=== PATIENT | male | born 1985 | race Caucasian/White ===

== ENCOUNTER 2021-04-30 15:38 | Outpatient (CLI) | payer MEDICARE, MEDICAID, SELFPAY ==
--- NOTE | 2021-05-04 10:22 | P.PCNHOL_ITS ---
Holter/Event Monitor Holter/Event Monitor Date of procedure: 05/04/21 Holter/Event Procedure: 48 Hr Holter Monitor Indications: Irregular heart beat Conclusion: 1. 48 hour holter monitor on 04/30/21. 2. Predominant rhythm is sinus rhythm. HR range 67-113 bpm; average HR 73 bpm. 3. There are 3,087 premature supraventricular complexes and 1,375 supraventricular couplets. There are 4 episodes of atrial tachycardia, fastest at 145 bpm and longest lasting 4 beats. 4. There are 1,174 premature ventricular complexes, 292 ventricular couplets and 2 ventricular triplets, and 17 ventricular trigeminy. No ventricular tach ycardia. 5. No sinoatrial or atrioventricular blocks. No significant pauses greater than 2 seconds. 6. No symptoms available for correlation.
== END 2021-04-30 15:39 | disposition home or self-care (01) ==
LOC: CHSCARD 15:44
PROVIDERS: PCP Family Medicine; Visit Provider Physician Assistant
DX: I49.9 Cardiac arrhythmia, unspecified (principal)
CPT/HCPCS: 93225; 93226

== ENCOUNTER 2021-07-22 07:37 | Emergency (ER) | payer MEDICARE, MEDICAID, SELFPAY ==
--- NOTE | ~2021-07-22 | CT_ITS ---
EXAMINATION: CT brain wo con DATE: 07/22/2021 10:49 INDICATION: Altered mental status TECHNIQUE: Computed tomography (CT) of the head was performed without intravenous contrast. Sagittal and coronal reconstructions were performed. The mA was adjusted according to patient size. Iterative reconstruction technique was employed. The dose-length product was 1210.66 mGy-cm. COMPARISON: None FINDINGS: No acute intracranial hemorrhage or abnormal extra axial fluid collection. There is small amount of g as seen along the margins of several of the gyri near the vertex primarily along the right frontopari etal region with smaller amount on some of the gyri of the more posterior right parietal lobe. No gas is seen in the subarachnoid spaces remote from the gyri. In addition there appears be a small amount of gas at the cavernous sinus as well as in the extrathecal soft tissues at the craniocervical junct ion. This constellation of findings suggests that the gas is intravascular. There is mild loss of gra y-white matter differentiation also in the right frontoparietal region which could be artifact of vol ume averaging related to the adjacent gas versus cytotoxic edema related to early infarct. Ventricles are normal and symmetric. No mass/mass effect. The orbits, paranasal sinuses and mastoid air cells a re normal. IMPRESSION: 1. Likely intravascular gas the extrathecal tissues at the craniocervical junction and at the left ca vernous sinus, bladder suggesting venous. Additional gas along multiple gyri of the right frontoparie josh region and in the more posterior right parietal lobe also likely intravascular but unclear whethe r venous or arterial. 2. Region of subtle decreased hand-white matter differentiation in the right frontoparietal region wh ich could be artifact of volume averaging from the adjacent gas versus early infarct. Could consider MRI for further evaluation. 3. Dr. Abdalla discussed these findings with Dr. Sloan at 11:10 AM. Reviewed, dictated and finalized at location A. IMPRESSION: 1. Likely intravascular gas the extrathecal tissues at the craniocervical junct ion and at the left cavernous sinus, bladder suggesting venous. Additional gas along multiple gyri of the right frontoparietal region and in the more posterio r right parietal lobe also likely intravascular but unclear whether venous or a rterial. 2. Region of subtle decreased hand-white matter differentiation in the right fr ontoparietal region which could be artifact of volume averaging from the adjace nt gas versus early infarct. Could consider MRI for further evaluation. 3. Dr. Abdalla discussed these findings with Dr. Sloan at 11:10 AM.
--- NOTE | ~2021-07-22 | XR_ITS ---
EXAMINATION: XR chest 1V portable INDICATION: Hypoxia and tachycardia TECHNIQUE: Portable AP chest at 0849 hours COMPARISON: 09/29/2018 FINDINGS: The lungs are free of acute opacities. There is no pleural effusion or pneumothorax. Chroni c postsurgical changes of Fontan procedure are noted. There has been interval insertion of an endolum inal stent into the IVC/pulmonary artery conduit. IMPRESSION: 1. No acute cardiopulmonary abnormality. Reviewed, dictated and finalized at location B.
[2021-07-22 07:57] VITALS: BP 118/75; PULSE 70; RESP 16; TEMP 36.7; O2SAT 96
--- NOTE | 2021-07-22 08:02 | ED.GENADULT ---
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 He presents to the ER -- an episode of palpitation this morning with rapid heart rate -- hypoxia with low oxygen saturation confirmed by his pulse ox meter. Patient has chronically low oxygen saturations around 80-90%. He had cyanosis of his fingertips. -- Extensive bruising over the anterior abdominal wall around the umbilicus where he had a surgery. -- anxiety attack secondary to his palpitation and hypoxia No chest pain or shortness of breath. No fever. Onset (ago): hour(s) ( Transient episode 2 hours ago with self resolution) Radiation: non-radiation Relieving factors: none Exacerbating factors: none Associated symptoms: denies other symptoms Related Data Home Medications Medication Instructions Recorded Confirmed aspirin 81 mg PO DAILY 07/22/21 07/22/21 furosemide [Lasix] 20 mg PO DAILY 07/22/21 07/22/21 lisinopril 10 mg PO DAILY 07/22/21 07/22/21 lorazepam [Ativan] 0.5 mg PO BID PRN 07/22/21 07/22/21 metoprolol tartrate 25 mg PO DAILY 07/22/21 07/22/21 omeprazole 40 mg PO DAILY 07/22/21 07/22/21 Allergies Allergy/AdvReac Type Severity Reaction Status Date / Time No Known Allergies Allergy Verified 07/22/21 08:05 Review of Systems Review of Systems: All systems reviewed & are unremarkable except as noted in HPI and below Constitutional: Constitutional: Reports as per HPI and Reports no additional constitutional complaints Eyes: Eyes: Reports as per HPI and Reports no additional eye complaints ENT: Reports system reviewed and no additional complaints, except as documented and Reports as per HPI Cardiovascular: Cardiovascular: Reports as per HPI and Reports no additional cardiovascular complaints Respiratory: Respiratory: Reports as per HPI and Reports no additional respiratory complaints Gastrointestinal: Gastrointestinal: Reports as per HPI, Reports no additional gastrointestinal complaints and Reports other ( Abdominal distension. Bruising anterior abdominal wall) Genitourinary: Genitourinary: Reports no additional male genitourinary complaints Musculoskeletal: Musculoskeletal: Reports no additional musculoskeletal complaints and Reports as per HPI Integumentary/Breasts: Skin/Breast: Reports system reviewed and no additional complaints, except as docu and Reports as per HPI Neurologic: Reports system reviewed and no additional complaints, except as documented and Reports as per HPI Psychiatric: Psychiatric: Reports no additional psychiatric complaints Endocrine: Endocrine: Reports no additional endocrine complaints Hematologic/Lymphatic: Hematologic/Lymphatic: Reports no additional hematologic/lymphatic complaints Allergic/Immunologic: Allergic/Immunologic: Reports no additional allergic/immunologic complaints [facility] Past Medical History Medical History (Updated 07/22/21 @ 11:42 by Clemente Sloan MD) Cardiac cirrhosis Double outlet right ventricle History of tricuspid valve disease Mitral valve atresia, congenital Paroxysmal atrial flutter Sick sinus syndrome Surgical History Surgical History (Updated 07/22/21 @ 08:29 by Clemente Sloan MD) H/O vein stripping S/P Fontan procedure Status post biventricular pacemaker Status post umbilical hernia repair, follow-up exam Exam Const: General: cooperative and ill appearing Nutritional Appearance: average body habitus HENMT: Head: normal to inspection and No palpable skull fracture present Ears: hearing grossly normal bilatera
--- NOTE | 2021-07-22 08:33 | ECG_ITS ---
Measurements Intervals [place] Rate: 69 P: 34 IN: 164 QRS: 150 QRSD: 118 T: 113 QT: 405 QTc: 436 Interpretive Statements ELECTRONIC ATRIAL PACEMAKER RIGHT AXIS DEVIATION [QRS AXIS > 100] T-WAVE ABNORMALITY, CONSISTENT WITH ANTEROSEPTAL ISCHEMIA MODERATE T-WAVE ABNORMALITY, CONSIDER LATERAL ISCHEMIA [-0.1+ mV T-WAVE IN I/aVL/V5/V6] LEFT VENTRICULAR HYPERTROPHY ABNORMAL ECG NO PREVIOUS ECG AVAILABLE FOR COMPARISON Electronically Signed On 07-22-2021 13:49:49 CDT by Dev Ordaz M.D.
[2021-07-22 09:15] LABS: Basophils Absolute Auto 0.06 K/mm3 (0.00-0.10); Eosinophils Absolute Auto 0.23 K/mm3 (0.02-0.50); Eosinophils Percent Auto 3.9 % (1.0-6.0); Hematocrit 53.6 % (40.0-54.0); Immature Granulocyte Absolute 0.02 K/mm3 (0.00-0.00); Immature Granulocyte Percent A 0.3 % (0.0-0.0); Immature Platelet Fraction Pct 6.4 % (1.0-7.0); Lymphocytes Absolute Auto 0.81 K/mm3 (1.10-4.50); Lymphocytes Percent Auto 13.9 % (18.0-42.0); Mean Corpuscular HGB Conc 33.6 g/dL (32.0-36.0); Mean Corpuscular Hemoglobin 31.2 pg (27.0-31.0); Mean Corpuscular Volume 92.9 fL (78.0-102.0); Mean Platelet Volume 11.7 fl (8.7-11.0); Monocytes Absolute Auto 0.41 K/mm3 (0.10-0.90); Neutrophils Absolute Auto 4.3 K/mm3 (1.7-7.2); Neutrophils Percent Auto 73.9 % (50.0-70.0); Platelet Count Result 124 K/mm3 (150-420); Red Blood Count 5.77 M/mm3 (4.70-6.10); Red Cell Distribution Width 13.1 % (11.6-14.4); White Blood Count 5.8 K/mm3 (4.8-10.8)
[2021-07-22 09:28] LABS: INR 1.3; Prothrombin Time 13.4 Seconds (9.50-12.10)
[2021-07-22 09:32] LABS: D Dimer 0.63 mg/L (0.19-0.50)
--- NOTE | 2021-07-22 09:32 | PC.NURSE ---
lab called, crial lab ddimer 0.63, dr mendiola made aware.
[2021-07-22 09:33] LABS: SARS-CoV-2 Ag Negative (Negative)
[2021-07-22 09:44] LABS: Alanine Aminotransferase 60 U/L (16-63); Albumin Level 4.5 g/dL (3.4-5.0); Alkaline Phosphatase 114 U/L (46-116); Anion Gap 13 mmol/L (8-16); Aspartate Amino Transferase 25 U/L (15-37); Bilirubin,Total 1.8 mg/dL (0.00-1.00); Blood Urea Nitrogen 24 mg/dL (7-18); Calcium 9.7 mg/dL (8.5-10.1); Carbon Dioxide 21 mmol/L (21-32); Chloride 101 mmol/L (98-108); Estimated CRCL calculation 64 ml/min; Estimated Glomerular Filt Rate > 60; Glucose 93 mg/dL (70-99); NT Pro B Type Natriuretic Pept 110 pg/mL (0-125); Osmolality Calculated 284 mOsm/kg (285-295); Potassium 3.8 mmol/L (3.5-5.1); Sodium 135 mmol/L (136-145); Thyroid Stimulating Hormone 2.38 uIU/mL (0.36-3.74); Total Protein 7.5 g/dL (6.4-8.2); Troponin I 4.1 ng/L (0.00-60.4)
[2021-07-22] MEDS: SODIUM CHLORIDE 0.9% IV 500 ML IV CONT (10:26)
[2021-07-22 10:46] LABS: Glucose Point of Care 81 mg/dl (65-105)
[2021-07-22] MEDS: LORazepam INJ (*CRX) 2 MG/ML VIAL (11:15)
--- NOTE | 2021-07-22 12:03 | PC.NURSE ---
rn called into patient's room by juan pablo for patient stating he felt weird . upon arrival in room patient was anxious and dizzy. patient was coxed on breathing and relaxation techniques. patients condition steadily continued to decreased and erp and rt called to beside, patient's eyes were deviated to the right and patient unable to repsond or follow commands. 0.5mg ativan given with no change. blood glucose checked. patient was given another 0.5mg ativan per erp request with no change following. patient was placed on non rebreather by ct and then began being bagged. o2 zenaida 98%. patient taken to ct for stat head ct. patient brought back to ed 2 and started to become more alert at that time. patient began speaking and asking questions patient's eyes still deviated to the right and flaccid to the left arm and leg. patient placed back on non rebreather and [facility] transfer line contacted at 1056. patients right sided gaze has resolved at 1105 and is speaking in full sentences, able to life and move left arm and leg. [facility] called at 1059 for transportation. [facility] called back at 1121 with acceptance. report called to lenny in ed. dr Cruz accepting ed physician
[2021-07-22 12:12] VITALS: BP 107/74; PULSE 70; RESP 26; TEMP 36.8; O2SAT 100
== END 2021-07-22 12:14 | disposition short-term general hospital (02) ==
PROVIDERS: Emergency Provider Internal Medicine Critical Care Medicine; PCP Family Medicine
DX: G81.04 Flaccid hemiplegia affecting left nondominant side (principal); T79.0XXA Air embolism (traumatic), initial encounter; Z20.822 Contact with and (suspected) exposure to COVID-19; I51.89 Other ill-defined heart diseases; I48.92 Unspecified atrial flutter; Z79.899 Other long term (current) drug therapy
CPT/HCPCS: 36415; 70450; 71045; 80053; 82948; 83880; 84443; 84484; 85025; 85055; 85380; 85610; 87426; 93005; 96361; 96374; 99285; C9803; J2060; J7040